=== PATIENT | female | born 1990 | race Two or more races ===

== ENCOUNTER 2018-09-21 09:36 | Emergency (ER) | payer OTHER ==
[2018-09-21 09:56] VITALS: BP 127/78; PULSE 86; TEMP 98.6; BMI 30.1
--- NOTE | 2018-09-21 11:24 | PDOC ---
History of Present Illness - General Chief Complaint: Pain Stated Complaint: PAIN Time Seen by Provider: 09/21/18 11:01 - History of Present Illness Initial Comments: 09/21/18 11:20 27-year-old female without comorbidities or systemic symptoms presents for evaluation of growths on her skin and diffuse muscle aches 3 years Past History - Past Medical History Allergies/Adverse Reactions: Allergies Allergy/AdvReac Type Severity Reaction Status Date / Time No Known Allergies Allergy Verified 09/21/18 09:53 Home Medications: Ambulatory Orders NK [No Known Home Medication] 09/21/18 Asthma: No Cancer: No Cardiac Disorders: No COPD: No Diabetes: No HTN: No Psychiatric Problems: ("panic attacks") Seizures: No Thyroid Disease: No - Immunization History Immunization Up to Date: Yes - Suicide/Smoking/Psychosocial Hx Smoking History: Current every day smoker Have you smoked in the past 12 months: No Number of Cigarettes Smoked Daily: 5 Information on smoking cessation initiated: No Hx Alcohol Use: No Drug/Substance Use Hx: No Substance Use Type: None Hx Substance Use Treatment: No Review of Systems - Review of Systems Constitutional: No: Fever Musculoskeletal: Yes: Joint Pain Neurological: Yes: Weakness *Physical Exam - Vital Signs Last Vital Signs Temp Pulse Resp BP Pulse Ox 98.6 F 86 18 127/78 100 09/21/18 09:53 09/21/18 09:53 09/21/18 09:53 09/21/18 09:53 09/21/18 09:53 - Physical Exam Comments: 09/21/18 11:21 HEAD: NC/AT EYES: Conjuntiva clear Ears: Canals and TM's normal NOSE: No d/c THROAT: Moist mucous membrances, oral pharanx clear, uvula midline NECK: Supple without adenopathy CARDIAC: S1 S2 LUNGS: CTA Full and Equal breath sounds ABDOMEN: Soft NT ND MS: Full ROM in all joints without edema NEUROLOGIC: No gross sensory or motor deficits, NVID SKIN: Normal color and temperature no lesions or rashes; there are numerous skin tags across the neck and back Moderate Sedation - Procedure Monitoring Vital Signs: Procedure Monitoring Vital Signs Temperature 98.6 F 09/21/18 09:53 Pulse Rate 86 09/21/18 09:53 Respiratory Rate 18 09/21/18 09:53 Blood Pressure 127/78 09/21/18 09:53 O2 Sat by Pulse Oximetry (%) 100 09/21/18 09:53 Medical Decision Making - Medical Decision Making 09/21/18 11:21 3 years of joint pain nothing new changed to bring her to the emergency room she will require an outpatient workup she does not have an internal medicine doctor I will give her 1 *DC/Admit/Observation/Transfer Diagnosis at time of Disposition: Joint pain - Discharge Dispostion Disposition: HOME Condition at time of disposition: Stable Decision to Admit order: No - Referrals Referrals: Grace Stevenson MD [Staff Physician] - Domo Mahan MD [Staff Physician] - Rachana Saldana MD [Staff Physician] - Yony Carlos MD [Staff Physician] - Kelsie Martinez MD [Staff Physician] - Ana Lilia Carrillo MD [Staff Physician] - Mario Alvarez MD [Non Staff, Medical] - Mary Kay Dias MD [Non Staff, Medical] - Guanako Mcnulty MD [Non Staff, Medical] - Jered Dickens MD [Non Staff, Medical] - Luz Cisneros MD [Non Staff, Medical] - Salvatore Diaz MD [Non Staff, Medical] - Wolfgang Hernandez MD [Non Staff, Medical] - Margret Carl MD [Non Staff, Medical] - Brandon Agudelo MD [Non Staff, Medical] - Abdirahman Rey PA [Non Staff, Medical] - Mary Kay Aldrich MD [Non Staff, Medical] - Fermin Cruz MD [Non Staff, Medical] - Hugh Crooks MD [Non Staff, Medical] - Dennis Mcgregor [Non Staff, Medical] - - Patient Instructions Printed Discharge Instructions: DI for Arthralgia, DI for Joint Pain Additional Instructions: Return to the emergency room should symptoms worsen please follow-up with internal medicine and dermatology next 2-3 days for further evaluation and treatment options may take Tylenol and Motrin for body aches as directed - Post Discharge Activity
== END 2018-09-21 11:44 | disposition home or self-care (01) ==
LOC: JERFT 09:36
DX: M25.50 Pain in unspecified joint (principal); L91.8 Other hypertrophic disorders of the skin
CPT/HCPCS: 99281-25

== ENCOUNTER 2018-11-29 22:54 | Emergency (ER) | payer OTHER ==
[2018-11-29 22:59] VITALS: BP 116/66; PULSE 89; TEMP 98.3; BMI 30.9
--- NOTE | 2018-11-30 02:20 | PDOC ---
*Physical Exam - Vital Signs Last Vital Signs Temp Pulse Resp BP Pulse Ox 98.3 F 89 18 116/66 97 11/29/18 22:57 11/29/18 22:57 11/29/18 22:57 11/29/18 22:57 11/29/18 22:57 Medical Decision Making - Medical Decision Making 11/30/18 02:20 Patient seen by the advanced practice provider under my direct supervision. Ancillary testing reviewed as necessary. I agree with plan as outlined by the advanced practice provider. *DC/Admit/Observation/Transfer Diagnosis at time of Disposition: Lower back pain Qualifiers: Chronicity: acute Back pain laterality: left Sciatica presence: with sciatica Sciatica laterality: sciatica of left side Qualified Code(s): M54.42 - Lumbago with sciatica, left side - Discharge Dispostion Disposition: HOME Condition at time of disposition: Stable - Referrals - Patient Instructions Additional Instructions: Take naproxen as needed for pain. Follow manufacturers instructions for appropriate dosage. War moist heat applied to your back may help alleviate pain. Return to emergency department for discoloration of the foot, numbness or tingling to the foot, worsening pain, or any other concerns. Thank you very much for choosing us to provide your emergent healthcare needs. - Post Discharge Activity Forms/Work/School Notes: Back to Work
[2018-11-30] MEDS ORDERED: KETOROLAC TROMETHAMINE 30 MG/1 ML VIAL IM ONE (02:28)
--- NOTE | 2018-11-30 02:28 | PDOC ---
History of Present Illness - General Chief Complaint: Back Pain Stated Complaint: LOWER BACK PAIN Time Seen by Provider: 11/30/18 02:15 History Source: Patient Exam Limitations: No Limitations - History of Present Illness Initial Comments: 11/30/18 02:30 CHIEF COMPLAINT: Lower back pain HISTORY OF PRESENT ILLNESS: This is a 27-year-old woman denies medical history presents emergency department for evaluation of left lower back pain radiating down the back of her left leg into her knee starting at approximately 9 AM on . Patient has no neurosensory deficits. Patient denies incontinence of bladder or bowel, urinary retention, saddle anesthesia, foot drop, history of drug use or cancer. Patient has been taking motrin with minimal relief of pain. REVIEW OF SYSTEMS: GENERAL: Afebrile, denies any weakness RESPIRATORY: No cough, wheezing, or hemoptysis. CARDIAC: No chest pain or shortness of breath MUSCULOSKELETAL: Pain to left sided lower back. No point tenderness. SKIN : No erythema, no bruising, no deformity. GI/: Denies any abdominal pain, no urinary difficulty, incontinence or urinary retention. RECTAL: Denies any difficulty this A.m. NEUROLOGICAL: Denies any numbness or tingling. No neurosensory deficits. PHYSICAL EXAM: GENERAL: The patient is awake, alert, and fully oriented, in no acute distress. RESPIRATORY: Lungs clear bilaterally, no rhonchi wheezes or crackles CARDIAC: S1-S2 audible, no murmur rub or gallop MUSCULOSKELETAL: Pain to left sided lower back, nonradiating, no tingling or sensory deficit. Less than 2 second cap refill, +2 pedal pulses. No spinal point tenderness. Normal reflexive and no deficits to sensation or strength. No palpable muscle spasms. GI/: Abdomen soft, nontender, nondistended. No rebound tenderness. No masses palpable. RECTAL: Deferred patient with no neurological findings SKIN: Warm, Dry, normal turgor, no erythema, no edema no bruising. Past History - Past Medical History Allergies/Adverse Reactions: Allergies Allergy/AdvReac Type Severity Reaction Status Date / Time No Known Allergies Allergy Verified 11/29/18 22:57 Home Medications: Ambulatory Orders NK [No Known Home Medication] 09/21/18 Asthma: No Cancer: No Cardiac Disorders: No COPD: No Diabetes: No HTN: No Psychiatric Problems: ("panic attacks") Seizures: No Thyroid Disease: No - Immunization History Immunization Up to Date: Yes - Suicide/Smoking/Psychosocial Hx Smoking History: Former smoker Have you smoked in the past 12 months: Yes Number of Cigarettes Smoked Daily: 5 If you are a former smoker, when did you quit?: 2 months ago Information on smoking cessation initiated: No Hx Alcohol Use: No Drug/Substance Use Hx: No Substance Use Type: None Hx Substance Use Treatment: No *Physical Exam - Vital Signs Last Vital Signs Temp Pulse Resp BP Pulse Ox 98.3 F 89 18 116/66 97 11/29/18 22:57 11/29/18 22:57 11/29/18 22:57 11/29/18 22:57 11/29/18 22:57 Moderate Sedation - Procedure Monitoring Vital Signs: Procedure Monitoring Vital Signs Temperature 98.3 F 11/29/18 22:57 Pulse Rate 89 11/29/18 22:57 Respiratory Rate 18 11/29/18 22:57 Blood Pressure 116/66 11/29/18 22:57 O2 Sat by Pulse Oximetry (%) 97 11/29/18 22:57 Medical Decision Making - Medical Decision Making 11/30/18 02:33 A/P: 27-year-old woman with left-sided sciatica Toradol 30 mg IM now Discharge home with instructions to take Naprosyn *DC/Admit/Observation/Transfer Diagnosis at time of Disposition: Lower back pain Qualifiers: Chronicity: acute Back pain laterality: left Sciatica presence: with sciatica Sciatica laterality: sciatica of left side Qualified Code(s): M54.42 - Lumbago with sciatica, left side - Discharge Dispostion Disposition: HOME Condition at time of disposition: Stable Decision to Admit order: No - Referrals - Patient Instructions Additional Instructions: Take naproxen as needed for pain. Follow manufacturers instructions for appropriate dosage. War moist heat applied to your back may help alleviate pain. Return to emergency department for discoloration of the foot, numbness or tingling to the foot, worsening pain, or any other concerns. Thank you very much for choosing us to provide your emergent healthcare needs. - Post Discharge Activity Forms/Work/School Notes: Back to Work
[2018-11-30] MEDS ORDERED: KETOROLAC TROMETHAMINE 30 MG/1 ML VIAL ONE (03:25)
== END 2018-11-30 03:38 | disposition home or self-care (01) ==
LOC: JER 22:54
PROC: 3E0233Z Introduction of Anti-inflammatory into Muscle, Percutaneous Approach (ICD-10-PCS; principal; 2018-11-29)
DX: M54.42 Lumbago with sciatica, left side (principal)
CPT/HCPCS: 99281-25

== ENCOUNTER 2019-03-14 19:19 | Emergency (ER) | payer OTHER | END 2019-03-14 23:06 | disposition home or self-care (01) | LOC: JER 19:19 ==

== ENCOUNTER 2019-03-23 00:17 | Emergency (ER) | payer OTHER | END 2019-03-23 05:00 | disposition home or self-care (01) | LOC: JER 00:17 ==

== ENCOUNTER 2019-08-10 17:05 | Emergency (ER) | payer OTHER ==
--- NOTE | 2019-08-10 17:10 | PDOC ---
Rapid Medical Evaluation Time Seen by Provider: 08/10/19 17:07 Medical Evaluation: Allergies Allergy/AdvReac Type Severity Reaction Status Date / Time No Known Allergies Allergy Verified 03/23/19 02:11 08/10/19 17:08 Pt c/o: severe low back pain x 2 days, mild suprapubic pain worsening over the past week, hx sciatica which she states slightly sim discomfort, pain worse with standing and walking, no vag discharge , 7 months Pt on brief exam: vss, Pt ordered for: sent to L&D Pt to proceed to the ED Discharge Disposition - Diagnosis Lower back pain - Referrals - Patient Instructions - Post Discharge Activity
[2019-08-10 17:11] VITALS: BMI 34.2
[2019-08-10 18:09] VITALS: BP 120/66; PULSE 97; TEMP 98.2
== END 2019-08-10 19:00 | disposition home or self-care (01) ==
LOC: JER 17:05
DX: M54.5 Low back pain (principal)
CPT/HCPCS: 99281-25

== ENCOUNTER 2019-11-02 12:30 | Inpatient (IN) | payer OTHER ==
[2019-11-02] MEDS ORDERED: DINOPROSTONE 10 MG VAGINAL SUPPOSITORY VG ONE (13:35)
--- NOTE | 2019-11-02 13:51 | HP ---
Past Medical History - Primary Care Physician PCP:: Riley Claros - Admission Chief Complaint: oligohydramnios History of Present Illness: Patient has had her care at [facility]. She presents from [facility] office due to oligohydramnios for induction. [facility] sono report was reviewed as well as the available record. Patient denies any complications with this as well as negative screen. History Source: Patient Limitations to Obtaining History: No Limitations - Past Medical History CELL STRIPPER FINAL: No: Alzheimer's, CVA, Dementia, Migraine, Multiple Sclerosis, Peripheral Neuropathy, Parkinson's, Seizure, Syncope, TIA, Vertigo, Other Cardiovascular: No: AFIB, Aneurysm, Aortic Insufficiency, Aortic Stenosis, CAD, CHF, Deep Vein Thrombosis, HTN, Hyperlipdemia, MN, Mitral Insufficiency, Mitral Stenosis, Murmur, Pulmonary Hypertension, Other Pulmonary: No: Asthma, Bronchitis, Cancer, COPD, O2 Dependent, Pneumonia, Previously Intubated, Pulmonary Embolus, Pulmonary Fibrosis, Sleep Apnea, Other Gastrointestinal: No: Ascites, Cancer, Constipation, Crohn's Disease, Diverticulitis, Diverticulosis, Esophageal Varices, Gastritis, GERD, GI Bleed, Hemorrhoids, Hiatal Hernia, Inflamatory Bowel Disease, Irritable Bowel Disease, Pancreatitis, Peptic Ulcer Disease, Ulcerative Colitis, Other Hepatobiliary: Yes: Cirrhosis, Cholelithiasis, Cholecystitis, Choledocholithiasis, Hepatitis A, Hepatitis B, Hepatitis C, Other Renal/: No: Renal Failure, Renal Inusuff, BPH, Cancer, Hematuria, Hemodialysis , Neurogenic Bladder, Renal Calculi, UTI, Other Reproductive: No: Ectopic , Endometriosis, Fibroids, PID, Polycystic Ovary Syndrome, Postmenopausal, Other Heme/Onc: No: Anemia, B12 Deficiency, Bleeding Disorder, Cancer, Current Chemotherapy, Current Radiation Therapy, Hemochromatosis, Hypercoaguable State, Myeloproliferative Synd, Sickle Cell Disease, Sickle Cell Trait, Thrombocytopenia, Other Infectious Disease: No: AIDS, C-Diff, Herpes Zoster, HIV, MRSA, STD's, Tuberculosis, VREF, Other Psych: No: Addictions, Anxiety, Bipolar, Depression, Panic, Psychosis, Schizophrenia, Other Musculoskeletal: No: Bursitis, Chronic low back pain, Hemiparesis, Hemiplegia, Osteoarthritis, Paraplegia, Other Rheumatology: No: Fibromyalgia, Gout, Lupus, Rheumatoid Arthritis, Sarcoidosis, Vasculitis, Other ENT: No: Allergic Rhinitis, Sinusitis, Other Endocrine: No: Porter's Disease, Shraddha's Disease, Diabetes Insipidus, Diabetes Mellitus, Hyperparathyroidism, Hyperthyroidism, Hypothyroidism, Osteopenia, SIADH, Other Dermatology: No: Basal Cell, Cellulitis, Eczema, Melanoma, Psoriasis, Squamous Cell, Other - Past Surgical History Past Surgical History: No: None, AAA Repair, AICD, Amputation, Appendectomy, Arthrosocopy, AV Fistula/Graft, Bariatric Surgery, Breast Biopsy, Bypass, CABG, Carotid Endarterectomy, Cataract Removal, Cholecystectomy, Colectomy, Colonoscopy, Colostomy, Craniotomy, , Cystectomy, Hernia Repair, Hysterectomy, Ileal Conduit, Ileosotomy, Joint Replacement, Kidney Transplant, Laminectomy, Liver Transplant, Mastectomy, Nephrectomy, Oopherectomy, Orchiectomy, Permanent Pacemaker, Prostatectomy, Splenectomy, Stent, Thoracotomy , TURP, Tonsillectomy, Tubal Ligation, Upper Endoscopy, Valve Replacement, Vasectomy, Vein Stripping/Ligation Hx Myomectomy: No Hx Transabdominal Cerclage: No - Smoking History Smoking history: Former smoker (2 years ago, 1/4 pack a day) Have you smoked in the past 12 months: Yes Aproximately how many cigarettes per day: 5 If you are a former smoker, when did you quit?: 2 months ago - Alcohol/Substance Use Hx Alcohol Use: No - Social History History of Recent Travel: Yes Home Medications - Allergies Allergies/Adverse Reactions: Allergies Allergy/AdvReac Type Severity Reaction Status Date / Time No Known Allergies Allergy Verified 10/18/19 23:13 - Home Medications Home Medications: Ambulatory Orders Ferrous Sulfate [Feosol] 325 mg PO BID 10/18/19 Mv-Mn/Iron/FA/Herbal/Digestive [ One Tablet] 1 each PO DAILY 10/18/19 Family Medical History Family History: Unremarkable Review of Systems Findings/Remarks: no pain, no LOF, no VB - Review of Systems Constitutional: denies: No Symptoms, Chills, Diaphoresis, Fever, Lethargy, Loss of Appetite, Malaise, Night Sweats, Unintentional Wgt. Loss, Weakness, Other Eyes: denies: No Symptoms, Blind Spots, Blurred Vision, Double Vision, Eye Pain , Floaters, Photophobia, Recent Change in Vision, Other HENT: denies: No Symptoms, Difficult Swallowing, Ear Discharge, Ear Pain, Epistaxis, Gingival Bleeding, Hearing Loss, Mouth Swelling, Nasal Congestion, Ocular Prosthesis, Throat Pain, Toothache, Ringing in Ears, Other Neck: denies: No Symptoms, Decreased ROM, Lumps, Pain on Movement, Stiffness, Swollen Glands, Tenderness, Other Cardiovascular: denies: No Symptoms, Chest Pain, Edema, Palpitations, Shortness of Breath, Other Respiratory: denies: No Symptoms, Cough, Exercise Intolerance, Hemoptysis, Orthopnea, PND, Snoring, SOB, SOB on Exertion, Wheezing, Other Gastrointestinal: denies: No Symptoms, Abdominal Pain, Bloating, Constipation, Diarrhea, Dysphagia, Indigestion, Melena, Nausea, Rectal Bleeding, Vomiting, Vomiting Blood, Other Genitourinary: denies: No Symptoms, Burning, Discharge, Dysuria, Flank Pain, Frequency, Hematuria, Incontinence, Lesions, Menses, Pain, Testicular Mass, Testicular Pain, Testicular Swelling, Urgency, Vaginal Bleeding, Other Breasts: denies: No Symptoms Reported, See HPI, Breast Implants, Discharge from Nipple, Lumps, Pain, Skin Changes, Other Musculoskeletal: denies: No Symptoms, Back Pain, Crepitus, Decreased ROM, Extremity Pain, Joint Pain, Joint Swelling, Muscle Pain, Muscle Cramps, Muscle Weakness, Other Integumentary: denies: No Symptoms, Blister, Bruising, Change in Color, Eczema, Erythema, Incision, Lesions, Lump, Pallor, Pruritis, Rash, Wound, Other Neurological: denies: No Symptoms, Change in LOC, Change in Speech, Confusion, Dizziness, Headache, Incoordination, Numbness, Parasthesia, Pre-Existing Deficit , Seizure, Syncope, Tremors, Unsteady Gait, Weakness, Other Endocrine: denies: No Symptoms, Excessive Sweating, Flushing, Increased Hunger, Increased Thirst, Intolerance to Cold, Intolerance to Heat, Unexplained Weight Gain, Unexplained Weight Loss, Other Hematology/Lymphatic: denies: No Symptoms, Easily Bruised, Excessive Bleeding, Swollen Glands, Other Psychiatric: denies: No Symptoms, Altered Sleep Pattern, Anxiety, Depression, Hallucinations, Panic, Paranoia, Suicidal, Other Physical Exam - Maternity Vital Signs: as documented HENT: Yes: Atraumatic Neck: Yes: Supple Cardiovascular: Yes: Regular Rate and Rhythm Lungs: Clear to auscultation Breast(s): Yes: Other (deferred) - Abdominal Exam/OB Number of Fetuses: Single Presentation: Vertex Contractions: No Monitor Mode: External Heart Rate (range): 120 Category: I Accelerations: Uniform Decelerations: None - Vaginal Exam/OB Vaginal Bleediing: No Speculum Exam: No Dilatation (cm): 1.5 Effacement (%): 40 Amniotic Membrane Status: Intact Presentation: Vertex/Position Station: -3 (posterior; cervidil placed in vaginal vault) - Physical Exam Musculoskeletal: Yes: WNL Extremities: Yes: WNL Edema: Yes Edema: LLE: Trace, RLE: Trace Deep Tendon Reflex Grade: Normal +2 ...Motor Strength: WNL Psychiatric: Yes: Alert, Oriented - Labs Lab Results: ordered Imaging - Results Ultrasound: Report Reviewed Assessment/Plan 28 y/o P2 @ 40.4wks, external OB patient presenting for induction of labor due to oligohydramnios, available OB summary reviewed. Patient counseled regarding induction of labor including its risks and complications. All questions answered and informed consent obtained. -Proceed as planned -Pain control as required
[2019-11-02 13:57] LABS: BASO % 0.3 % (0-2.0); EOS % 0.4 % (0-4.5); HEMATOCRIT 31.5 % (32.4-45.2); HEMOGLOBIN 10.2 GM/dL (10.7-15.3); LYMPH % 16.6 % (8-40); MCH 23.9 pg (25.7-33.7); MCHC 32.5 g/dl (32.0-36.0); MEAN CELL VOLUME 73.6 fl (80-96); MONO % 6.2 % (3.8-10.2); NEUT % 76.5 % (42.8-82.8); PLATELET COUNT 134 K/MM3 (134-434); RBC 4.28 M/mm3 (3.60-5.2); RDW 21.2 % (11.6-15.6); WHITE BLOOD COUNT 8.7 K/mm3 (4.0-10.0)
[2019-11-02 13:59] LABS: INR 0.97 (0.83-1.09); PROTHROMBIN TIME (PATIENT) 11.4 SEC (9.7-13.0)
[2019-11-02 14:02] LABS: ACTIVATED PTT 25.6 SECONDS (25.2-36.5)
[2019-11-02 14:14] VITALS: BMI 36.1
[2019-11-02 14:14] LABS: BLOOD UREA NITROGEN 9.1 mg/dL (7-18); CALCIUM 8.9 mg/dL (8.5-10.1); CREATININE 0.5 mg/dL (0.55-1.3); POTASSIUM 4.1 mmol/L (3.5-5.1)
[2019-11-02] MEDS ORDERED: AMPICILLIN - 2 GM in SODIUM CHLORIDE 100 ML IVPB ONE (14:18)
[2019-11-02 14:21] LABS: ANISOCYTOSIS 2+; MACROCYTOSIS 0; PLATELET ESTIMATE NORMAL
[2019-11-02] MEDS: ELECTROLYTE-148 SOLN 1,000 ML IV SCH ×2 (16:30→22:25)
[2019-11-02] MEDS ORDERED: AMPICILLIN - 1 GM in SODIUM CHLORIDE 100 ML IVPB SCH (18:18)
[2019-11-03] MEDS ORDERED: FENTANYL/BUPIVACAINE/NS/PF - PCEA - 50 ML DISP.SYRIN EP ONE ×3 (01:15→05:03)
[2019-11-03] MEDS: ELECTROLYTE-148 SOLN 1,000 ML IV SCH ×2 (01:30→19:46)
[2019-11-03] MEDS ORDERED: LIDO 2%/EPI 1:200000 PRESRVFRE (20 ML SDVIAL) ONE (01:32)
[2019-11-03] MEDS ORDERED: BUPIVACAINE HCL/PF 0.25% (2.5MG/ML) 10 ML VIAL ONE (01:32)
[2019-11-03] MEDS ORDERED: NALOXONE HCL 0.4 MG/ML VIAL IVPUSH PRN (01:54)
[2019-11-03] MEDS ORDERED: FENTANYL/BUPIVACAINE/NS/PF - PCEA - 50 ML DISP.SYRIN EP SCH (02:00)
--- NOTE | 2019-11-03 02:29 | PN ---
Progress Note, Labor Vaginal Exam #1 Labor Exam Date: 11/03/19 Labor Exam Time: 02:28 Heart Rate (range): Cat I Dilatation: 4 Effacement (%): 100 Amniotic Membrane Status: Ruptured Presentation: Vertex/Position Station: -3 Remarks: Comfortable s/p epidural Cervidil pulled 1AM AROM, clears Will start pitocin in one hour Largest baby 6lbs 10oz, EFW 8lb 15oz. Pt aware of possibility of C/S given the EFW. Will cont trial of labor Migue Saldana MD
[2019-11-03] MEDS ORDERED: OXYTOCIN 30 UNITS in 0.9% NS 30 UNIT/500 ML INFUS.BAG IVPB SCH (02:45)
[2019-11-03] MEDS ORDERED: OXYTOCIN 30 UNITS in 0.9% NS 30 UNIT/500 ML INFUS.BAG IVPB ONE (04:19)
[2019-11-03] MEDS ORDERED: LIDOCAINE HCL 1% PRESERVATIVE FREE - 30ML VIAL ONE (06:12)
[2019-11-03] MEDS ORDERED: OXYTOCIN 20 UNITS in 0.9% NS 20 UNIT/1,000 ML INFUS.BAG IV ONE (06:12)
--- NOTE | 2019-11-03 06:28 | PN ---
Progress Note, Labor Vaginal Exam #2 Labor Exam Date: 11/03/19 Labor Exam Time: 06:26 Heart Rate (range): Cat I Dilatation: 10 Effacement (%): 100 Amniotic Membrane Status: Ruptured Presentation: Vertex/Position Station: +1 Remarks: Passive descent Will start pushing within the hour
[2019-11-03] MEDS ORDERED: WITCH HAZEL 50% (TUCKS) 40 PAD/JAR PAD TP PRN (07:23)
[2019-11-03] MEDS ORDERED: BENZOCAINE 28 GM HEMORRHOIDAL OINTMENT TP PRN (07:23)
[2019-11-03] MEDS ORDERED: BISACODYL 10 MG SUPP.RECT RC PRN (07:23)
[2019-11-03] MEDS ORDERED: BENZOCAINE 20% 57 GM BOTTLE TP PRN (07:23)
[2019-11-03] MEDS ORDERED: METHYLERGONOVINE MALEATE 0.2 MG/1 ML AMP IM PRN (07:23)
--- NOTE | 2019-11-03 07:23 | PN ---
Delivery - Delivery Vaginal Delivery: Spontaneous Type of Anesthesia: Epidural Episiotomy/Laceration: None EBL (cc): 250 Delivery, Single - Stages of Labor Placenta: Yes: Spontaneous - Condition of Community Nutrition Educator/Martial Arts Instructor Present: No Infant Gender: Female Position: Right, OA - 1 Minute Total Score: 9 5 Minutes Total Score: 9 - Feeding Plan Initial Plan: Elected not to breastfeed exclusively throughout hospitalization Remarks - Remarks Remarks: of VFI from MEREDITH position over intact perineum. 40 week . Epidural anesthesia. No nuchal. No meconium. Spontaneous delivery of anterior shoulder and remaining body. Infant placed on mother's abdomen. Vigorous. Weight pending to allow sufficient skin to skin. Apgars 9/9. Spontaneous delivery of intact placenta with 3VC. Fundus firm. Perineum inspected, no lacerations. EBL 250. Mother and baby girl doing well. Rachana Saldana MD
[2019-11-03] MEDS ORDERED: OXYTOCIN 20 UNITS in 0.9% NS 20 UNIT/1,000 ML INFUS.BAG IV SCH (07:30)
[2019-11-03] MEDS: PRENATAL VITAMINS W/ FOLIC ACID TABLET (FP) PO SCH (09:53)
[2019-11-04 08:47] LABS: BASO % 0.4 % (0-2.0); EOS % 0.5 % (0-4.5); HEMATOCRIT 30.4 % (32.4-45.2); HEMOGLOBIN 9.8 GM/dL (10.7-15.3); LYMPH % 21.8 % (8-40); MCH 23.7 pg (25.7-33.7); MCHC 32.1 g/dl (32.0-36.0); MEAN CELL VOLUME 73.8 fl (80-96); MEAN PLT VOLUME 11.1 fl (7.5-11.1); MONO % 6.6 % (3.8-10.2); NEUT % 70.7 % (42.8-82.8); PLATELET COUNT 140 K/MM3 (134-434); RBC 4.12 M/mm3 (3.60-5.2); RDW 21.7 % (11.6-15.6); WHITE BLOOD COUNT 12.3 K/mm3 (4.0-10.0)
[2019-11-04] MEDS: PRENATAL VITAMINS W/ FOLIC ACID TABLET (FP) PO SCH (10:00)
[2019-11-04] MEDS ORDERED: SENNOSIDES/DOCUSATE COMBO (SENNA PLUS) TABLET (UD) PO PRN (22:00)
[2019-11-04] MEDS: IBUPROFEN 600 MG TABLET (FP) PO PRN (23:14)
[2019-11-04] MEDS: ACETAMINOPHEN 325 MG TABLET (FP) PO PRN (23:14)
--- NOTE | 2019-11-05 08:11 | DS ---
Physical Exam-EMERGENCY ROOM PHYSICIAN ASSISTANT Vital Signs: Vital Signs Temperature 98.8 F 11/04/19 22:00 Pulse Rate 99 H 11/04/19 22:00 Respiratory Rate 18 11/04/19 22:00 Blood Pressure 129/66 11/04/19 22:00 O2 Sat by Pulse Oximetry (%) 100 11/03/19 08:00 Constitutional: Yes: Well Nourished, Pallor, Other (no c/o dizziness) Eyes: Yes: WNL HENT: Yes: WNL Neck: Yes: WNL Cardiovascular: Yes: WNL Respiratory: Yes: WNL Gastrointestinal: Yes: WNL Renal/: Yes: WNL. No: CVA Tenderness - Right ....Post : Yes: Uterus firm, Uterus non-tender, Moderate lochia rubra ( perineum intact) Breast(s): Yes: WNL (BF , soft) Musculoskeletal: Yes: WNL Extremities: Yes: WNL. No: Calf Tenderness Edema: LLE: 1+, RLE: 1+ Integumentary: Yes: WNL Neurological: Yes: WNL, Alert, Oriented ...Motor Strength: WNL Psychiatric: Yes: WNL, Alert Labs: CBC, BMP 11/04/19 08:10 11/02/19 13:25 Delivery - Delivery Vaginal Delivery: Spontaneous Type of Anesthesia: Epidural Episiotomy/Laceration: None EBL (cc): 250 Delivery, Single - Stages of Labor Date 1st Stage Initiatied: 11/03/19 Time 1st Stage Initiated: 01:00 Date 2nd Stage Initiated: 11/03/19 Time 2nd Stage Initiated: 06:00 Date of Delivery: 11/03/19 Time of Delivery: 07:11 Time Placenta Delivered: 07:15 Placenta: Yes: Spontaneous - Condition of Systems Integrator/Drug Room Operator Present: No Gender: Female Weight: 7 lb 15 oz Position: Right, OA Total Hours ROM (Hrs/Mins): 4h55m - 1 Minute Total Score: 9 5 Minutes Total Score: 9 - Feeding Plan Initial Plan: Elected not to breastfeed exclusively throughout hospitalization Remarks - Remarks Remarks: pp course uneventful anemia counselled she has iron & pnv at home , she will continue discharge today. Discharge Summary Problems reviewed: Yes Reason For Visit: LABOR INDUCTION Current Active Problems Normal spontaneous vaginal delivery (Acute) Condition: Stable - Instructions Diet, Activity, Other Instructions: Regular Diet Follow up in 3 weeks for your visit with Dr. Saldana Referrals: Rachana Saldana MD [Staff Physician] - Disposition: HOME - Home Medications Comprehensive Discharge Medication List: Ambulatory Orders Ferrous Sulfate [Feosol] 325 mg PO BID 10/18/19 Vits96/Iron Fum/Folic [ Tablet] 1 each PO DAILY 11/02/19 Ibuprofen 600 mg PO Q6H PRN #30 tablet 11/03/19
[2019-11-05] MEDS: IBUPROFEN 600 MG TABLET (FP) PO PRN (09:39)
[2019-11-05] MEDS: PRENATAL VITAMINS W/ FOLIC ACID TABLET (FP) PO SCH (09:39)
[2019-11-05] MEDS: ACETAMINOPHEN 325 MG TABLET (FP) PO PRN (09:39)
[2019-11-05 10:32] VITALS: BP 126/69; PULSE 97; TEMP 97.8
== END 2019-11-05 12:20 | disposition home or self-care (01) | DRG 560 ==
LOC: JLDR 12:30 → J3N 11-03 11:35 → J3W 11-04 14:47
PROVIDERS: ADMIT Obstetrics & Gynecology; ATTEND Obstetrics & Gynecology
PROC: 10E0XZZ Delivery of Products of Conception, External Approach (ICD-10-PCS; principal; 2019-11-03)
DX: O41.03X0 Oligohydramnios, third trimester, not applicable or unspecified (principal); O99.02 Anemia complicating childbirth; D64.9 Anemia, unspecified; Z3A.40 40 weeks gestation of pregnancy; Z37.0 Single live birth
CPT/HCPCS: 36415; 59409; 80048; 85025; 85610; 85730; 86593; 86850; 86900; 86901

== ENCOUNTER 2020-09-01 18:50 | Emergency (ER) | payer OTHER ==
[2020-09-01 19:00] VITALS: BMI 37.2
[2020-09-01] MEDS ORDERED: SODIUM CHLORIDE 1,000 ML IV STA (19:47)
[2020-09-01 21:07] LABS: BASO % 0.5 % (0-2.0); EOS % 1.7 % (0-4.5); HEMATOCRIT 35.5 % (32.4-45.2); HEMOGLOBIN 11.5 GM/dL (10.7-15.3); LYMPH % 21.1 % (8-40); MCH 25.1 pg (25.7-33.7); MCHC 32.5 g/dl (32.0-36.0); MEAN CELL VOLUME 77.2 fl (80-96); MONO % 5.6 % (3.8-10.2); NEUT % 71.1 % (42.8-82.8); PLATELET COUNT 230 K/MM3 (134-434); RBC 4.59 M/mm3 (3.60-5.2); RDW 16.9 % (11.6-15.6); WHITE BLOOD COUNT 10.3 K/mm3 (4.0-10.0)
[2020-09-01 21:15] LABS: URINE APPEARANCE CLEAR; URINE BILIRUBIN NEGATIVE (NEGATIVE); URINE COLOR YELLOW; URINE GLUCOSE (UA) NEGATIVE (NEGATIVE); URINE KETONE NEGATIVE (NEGATIVE); URINE LEUK ESTERASE NEGATIVE (NEGATIVE); URINE NITRITE NEGATIVE (NEGATIVE); URINE PROTEIN NEGATIVE (NEGATIVE); URINE UROBILINOGEN 0.2 mg/dL (0.2-1.0)
[2020-09-01 21:26] LABS: POTASSIUM 4.3 mmol/L (3.5-5.1)
[2020-09-01 21:28] LABS: CALCIUM 9.7 mg/dL (8.5-10.1)
[2020-09-01 21:29] LABS: ALBUMIN 3.4 g/dl (3.4-5.0); BLOOD UREA NITROGEN 7.1 mg/dL (7-18)
[2020-09-01 21:32] LABS: CREATININE 0.6 mg/dL (0.55-1.3)
[2020-09-01 21:33] LABS: BILIRUBIN,TOTAL 0.2 mg/dL (0.2-1); TOT PROT 7.3 g/dl (6.4-8.2)
[2020-09-01 23:50] VITALS: BP 120/72; PULSE 85; TEMP 98.4
== END 2020-09-01 23:49 | disposition home or self-care (01) ==
LOC: JER 18:50
DX: O26.892 Other specified pregnancy related conditions, second trimester (principal)
CPT/HCPCS: 36415; 76801-TC; 80053; 81003; 84702; 85025; 87086; 87186; 99284-25